=== PATIENT | male | born 1950 | race African-American/Black ===

== ENCOUNTER 2017-03-20 09:42 | Emergency (ER) | payer MEDICARE, OTHER ==
[~2017-03-20 09:42] MED LIST: ASPIRIN EC81 MG PO; ATARAX25 MG PO; COLCRYS0.6 MG PO; COZAAR50 MG PO; DUONEB 2.5-0.5M1 AMP INH; ELAVIL25 MG PO; FLEXERIL10 MG PO; TOPROL XL 25MG25 MG PO; VENTOLIN HFA IN18 GM INH; ZANTAC150 MG PO
== END 2017-03-20 10:35 | disposition home or self-care (01) ==
LOC: FER 09:42
DX: S61.211A Laceration without foreign body of left index finger without damage to nail, initial encounter (principal); E11.9 Type 2 diabetes mellitus without complications; I10 Essential (primary) hypertension; J44.9 Chronic obstructive pulmonary disease, unspecified; F17.210 Nicotine dependence, cigarettes, uncomplicated; Z23 Encounter for immunization; Z79.899 Other long term (current) drug therapy; Z79.82 Long term (current) use of aspirin; W45.8XXA Other foreign body or object entering through skin, initial encounter
CPT/HCPCS: 90471; 90715